=== PATIENT | male | born 1965 | race Caucasian/White ===

== ENCOUNTER 2016-10-16 15:32 | Emergency (ER) | payer BC, OTHER ==
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
[2016-10-16] MEDS ORDERED: Ketorolac 60 MG/2 ML SDV IM ONE (16:41)
[2016-10-16 16:44] VITALS: BP 121/80
--- NOTE | 2016-10-18 11:23 | CR ---
EXAM DATE: 10/16/16 PATIENT'S AGE: 50 Patient: JAYRO BETH Facility: [place], [place] Site . Site : 1965 Study: XRay Shoulder Right [id number]/[id number] 4:09:21 PM Ordering Physician: Doctor Weiss Final Report: INDICATION: Shoulder pain. Trauma. Previous AC separation. Technique: Right shoulder. Three views. 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 The changes are compatible with the previous acromioclavicular separation. 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 Normal alignment in the glenohumeral joint. No acute fracture. Dictated by Zachary Jung MD @ Oct 16 2016 4:30PM (Electronic Signature) Report Signed by Proxy. MATT
== END 2016-10-16 17:16 | disposition home or self-care (01) ==
LOC: MW.ED 15:32
DX: S49.91XA Unspecified injury of right shoulder and upper arm, initial encounter (principal); Z98.890 Other specified postprocedural states
CPT/HCPCS: 73030; 96372; 99283; J1885

== ENCOUNTER 2020-09-01 12:03 | Emergency (ER) | payer OTHER, BC ==
--- NOTE | 2020-09-01 12:05 | EDM.PDOC ---
ED HPI GENERAL MEDICAL PROBLEM - General Stated Complaint: COVID Time Seen by Provider: 09/01/20 12:04 Source of Information: Reports: Patient History Limitations: Reports: No Limitations - History of Present Illness INITIAL COMMENTS - FREE TEXT/NARRATIVE: 54-year-old male presents for fever, cough, shortness of breath associated with recent COVID-19 diagnosis. Patient notes he has been feeling unwell for about the last 8 days. He received this diagnosis about 6 days ago. He has been taking Advil although he does not now the strength. He reports fevers, body aches, shortness of breath, nonproductive cough, chest tightness. - Related Data Allergies Allergy/AdvReac Type Severity Reaction Status Date / Time No Known Allergies Allergy Verified 09/01/20 12:23 Home Meds: Home Meds Cyclobenzaprine [Flexeril] 1 tab PO TID PRN #20 tablet 10/16/16 [Rx] Diclofenac Sodium [Voltaren] 1 tab PO TIDMEALS PRN #30 tab.ec 10/16/16 [Rx] Past Medical History - Past Health History Medical/Surgical History: Denies Medical/Surgical History Gastrointestinal History: Reports: Other (See Below) Other Gastrointestinal History: history of heartburn, takes OTC med Musculoskeletal History: Reports: Fracture Other Musculoskeletal History: history of 2 fx wrists and 2 fx ankles - Past Surgical History HEENT Surgical History: Reports: Naso-Sinus Surgery, Tonsillectomy Musculoskeletal Surgical History: Reports: Amputation, Other (See Below) Social & Family History - Family History Family Medical History: No Pertinent Family History ED ROS GENERAL - Review of Systems Review Of Systems: Comprehensive ROS is negative, except as noted in HPI. ED EXAM, GENERAL - Physical Exam Exam: See Below Exam Limited By: No Limitations General Appearance: Alert, WD/WN, No Apparent Distress Throat/Mouth: Normal Voice, No Airway Compromise Head: Atraumatic, Normocephalic Neck: Normal Inspection Respiratory/Chest: No Respiratory Distress, Lungs Clear, Normal Breath Sounds, No Accessory Muscle Use Cardiovascular: Normal Peripheral Pulses, Regular Rate, Rhythm, No Edema Extremities: Normal Inspection Neurological: Alert, Normal Cognition Psychiatric: Normal Mood, Flat Affect Skin Exam: Warm, Dry, Intact, Normal Color Course - Vital Signs Last Recorded V/S: Last Vital Signs Temp 99.3 F 09/01/20 13:12 Pulse 89 09/01/20 12:05 Resp 18 09/01/20 12:05 BP 129/85 09/01/20 12:05 Pulse Ox 94 L 09/01/20 12:05 - Orders/Labs/Meds Orders: Active Orders 24 hr Category Date Time Status EKG Documentation Completion [RC] STAT Care 09/01/20 12:16 Active Pulse Oximetry [RC] ASDIRECTED Care 09/01/20 12:17 Active Sodium Chloride 0.9% [Saline Flush] Med 09/01/20 12:16 Active 10 ml FLUSH ASDIRECTED PRN Sodium Chloride 0.9% [Saline Flush] Med 09/01/20 12:16 Active 2.5 ml FLUSH ASDIRECTED PRN Saline Lock Insert [OM.PC] Stat Oth 09/01/20 12:17 Ordered Medication Orders Sodium Chloride (Sodium Chloride 0.9% 10 Ml Syringe) 10 ml FLUSH ASDIRECTED PRN PRN Reason: Keep Vein Open Last Admin: 09/01/20 13:13 Dose: 10 ml Documented by: [id number] Sodium Chloride (Sodium Chloride 0.9% 2.5 Ml Syringe) 2.5 ml FLUSH ASDIRECTED PRN PRN Reason: Keep Vein Open Last Admin: 09/01/20 13:13 Dose: 2.5 ml Documented by: [email or web address] Labs: Laboratory Tests 09/01/20 09/01/20 Range/Units 13:23 13:23 WBC 3.67 L (4.0-11.0) K/uL RBC 5.00 (4.50-5.90) M/uL Hgb 15.3 (13.0-17.0) g/dL Hct 44.9 (38.0-50.0) % MCV 89.8 (80.0-98.0) fL MCH 30.6 (27.0-32.0) pg MCHC 34.1 (31.0-37.0) g/dL RDW Std Deviation 46.3 (28.0-62.0) fl RDW Coeff of Sherin 14 (11.0-15.0) % Plt Count 213 (150-400) K/uL MPV 9.70 (7.40-12.00) fL Neut % (Auto) 59.7 (48.0-80.0) % Lymph % (Auto) 30.0 (16.0-40.0) % [place] % (Auto) 9.5 (0.0-15.0) % Eos % (Auto) 0.8 (0.0-7.0) % Baso % (Auto) 0.0 (0.0-1.5) % Neut # (Auto) 2.2 (1.4-5.7) K/uL Lymph # (Auto) 1.1 (0.6-2.4) K/uL [place] # (Auto) 0.4 (0.0-0.8) K/uL Eos # (Auto) 0.0 (0.0-0.7) K/uL Baso # (Auto) 0.0 (0.0-0.1) K/uL Nucleated RBC % 0.0 /100WBC Nucleated RBCs # 0 K/uL Sodium 136 (136-148) mmol/L Potassium 4.1 (3.5-5.1) mmol/L Chloride 101 (98-107) mmol/L Carbon Dioxide 26.2 (21.0-32.0) mmol/L BUN 16 (7.0-18.0) mg/dL Creatinine 0.8 (0.8-1.3) mg/dL Est Cr Clr Drug Dosing TNP Estimated GFR (MDRD) > 60.0 ml/min Glucose 103 (74-106) mg/dL Calcium 7.9 L (8.5-10.1) mg/dL Total Bilirubin 0.7 (0.2-1.0) mg/dL AST 25 (15-37) IU/L ALT 32 (14-63) IU/L Alkaline Phosphatase 71 (46-116) U/L Troponin I < 0.050 (0.000-0.056) ng/mL Total Protein 6.7 (6.4-8.2) g/dL Albumin 3.2 L (3.4-5.0) g/dL Globulin 3.5 (2.6-4.0) g/dL Albumin/Globulin Ratio 0.9 (0.9-1.6) Meds: Medications Generic Name Dose Route Start Last Admin Trade Name Freq PRN Reason Stop Dose Admin Sodium Chloride 10 ml 09/01/20 12:16 09/01/20 13:13 Sodium Chloride 0.9% 10 Ml Syringe FLUSH 10 ml ASDIRECTED PRN Administration Keep Vein Open Sodium Chloride 2.5 ml 09/01/20 12:16 09/01/20 13:13 Sodium Chloride 0.9% 2.5 Ml Syringe FLUSH 2.5 ml ASDIRECTED PRN Administration Keep Vein Open Discontinued Medications Generic Name Dose Route Start Last Admin Trade Name Val PRN Reason Stop Dose Admin Acetaminophen 1,000 mg 09/01/20 12:16 09/01/20 13:12 Acetaminophen 500 Mg Tab PO 09/01/20 12:17 1,000 mg ONETIME ONE Administration Sodium Chloride 1,000 mls @ 999 mls/hr 09/01/20 12:16 09/01/20 13:11 Normal Saline IV 09/01/20 13:16 999 mls/hr .Bolus ONE Administration Ketorolac Tromethamine 15 mg 09/01/20 12:16 09/01/20 13:11 Ketorolac 15 Mg/Ml Sdv IVPUSH 09/01/20 12:17 15 mg ONETIME ONE Administration - Re-Assessments/Exams Free Text/Narrative Re-Assessment/Exam: 09/01/20 12:19 We will get EKG, routine lab work including troponin considering the chest pain component. Will get a chest x-ray. Will treat symptomatically with IV fluid bolus, Toradol, Tylenol. Will reassess patient for disposition. 09/01/20 14:13 Patient's labs are unremarkable aside from leukopenia consistent with COVID. Will d/c with instructions for motrin/tylenol use. Departure - Departure Time of Disposition: 14:14 Disposition: Home, Self-Care 01 Condition: Good Clinical Impression: COVID-19 - Discharge Information Instructions: COVID-19 Frequently Asked Questions Referrals: PCP,None [Primary Care Provider] - Additional Instructions: Your labs are grossly unremarkable. Your chest x-ray does show signs of mild Covid. You should take Tylenol and Motrin to help with your symptoms. You can take 1000 mg of Tylenol every 4 hours as needed as well as 600 mg of Motrin every 6 hours as needed. These are safe to take together. If you begin to experience significant difficulty breathing or suddenly changing chest pain then you are encouraged to come back to the emergency department for reassessment. The following information is given to patients seen in the emergency department who are being discharged to home. This information is to outline your options for follow-up care. We provide all patients seen in our emergency department with a follow-up referral. The need for follow-up, as well as the timing and circumstances, are variable depending upon the specifics of your emergency department visit. If you don't have a primary care physician on staff, we will provide you with a referral. We always advise you to contact your personal physician following an emergency department visit to inform them of the circumstance of the visit and for follow-up with them and/or the need for any referrals to a consulting spec ialist. The emergency department will also refer you to a specialist when appropriate. This referral assures that you have the opportunity for follow-up care with a specialist. All of these measure are taken in an effort to provide you with optimal care, which includes your follow-up. Under all circumstances we always encourage you to contact your private physician who remains a resource for coordinating your care. When calling for follow-up care, please make the office aware that this follow-up is from your recent emergency room visit. If for any reason you are refused follow-up, please contact the [facility] at and asked to speak to the emergency department charge nurse. Please follow up with your primary care physician. If you do not have a primary care physician, see below: [facility] [address] [place] [id number] [id number] [facility] [address] [place] [id number] Sepsis Event Note (ED) - Focused Exam Vital Signs: Vital Signs Temp Temp Pulse Resp BP Pulse Ox 09/01/20 13:12 99.3 F 09/01/20 12:05 99.3 F 89 18 129/85 94 L - My Orders Last 24 Hours: My Active Orders 09/01/20 12:16 EKG Documentation Completion [RC] STAT Sodium Chloride 0.9% [Saline Flush] 10 ml FLUSH ASDIRECTED PRN Sodium Chloride 0.9% [Saline Flush] 2.5 ml FLUSH ASDIRECTED PRN 09/01/20 12:17 Pulse Oximetry [RC] ASDIRECTED Saline Lock Insert [OM.PC] Stat - Assessment/Plan Last 24 Hours: My Active Orders 09/01/20 12:16 EKG Documentation Completion [RC] STAT Sodium Chloride 0.9% [Saline Flush] 10 ml FLUSH ASDIRECTED PRN Sodium Chloride 0.9% [Saline Flush] 2.5 ml FLUSH ASDIRECTED PRN 09/01/20 12:17 Pulse Oximetry [RC] ASDIRECTED Saline Lock Insert [OM.PC] Stat
[2020-09-01] MEDS ORDERED: Sodium Chloride 0.9% 2.5 ML Syringe FLUSH PRN (12:16)
[2020-09-01] MEDS ORDERED: Sodium Chloride 0.9% 1,000 ML IV ONE (12:16)
[2020-09-01] MEDS ORDERED: Acetaminophen 500 MG Tab PO ONE (12:16)
[2020-09-01] MEDS ORDERED: Sodium Chloride 0.9% 10 ML Syringe FLUSH PRN (12:16)
[2020-09-01] MEDS ORDERED: Ketorolac 15 MG/ML SDV IVPUSH ONE (12:16)
--- NOTE | 2020-09-01 12:44 | CR ---
INDICATION: COVID. 54-year-old male. No additional clinical information provided. TECHNIQUE: Chest radiograph 1 view COMPARISON: None FINDINGS: Cardiovascular and mediastinum: The heart silhouette is normal in size and morphology. The mediastinum is normal in appearance. Lungs and pleural spaces: Faint peripheral patchy infiltrate at the right lower lung zone. Bilateral upper lung zones and left lung base are relatively clear. No blunting of costophrenic sulci. Bones and soft tissues: No significant findings. Right shoulder arthroplasty hardware partially visualized. IMPRESSION: 1. Peripheral patchy opacities at the right lung base, suspicious for COVID-19 viral pneumonitis. 2. Possible subtle atelectasis and/or infiltrate at the left costophrenic sulcus. Dictated by Herber Cardoza MD @ 09/01/2020 12:42:[address] Herber Cardoza @ Sep 01 2020 12:42PM
[2020-09-01 14:03] LABS: BLOOD UREA NITROGEN,BUN 16 mg/dL (7.0-18.0); CARBON DIOXIDE,CO2 26.2 mmol/L (21.0-32.0); CHLORIDE,CL 101 mmol/L (98-107); GLUCOSE RANDOM 103 mg/dL (74-106); POTASSIUM,K 4.1 mmol/L (3.5-5.1); SODIUM,NA 136 mmol/L (136-148)
[2020-09-01 14:30] VITALS: BP 129/83; PULSE 78
== END 2020-09-01 14:39 | disposition home or self-care (01) ==
LOC: MW.ED 12:03
DX: U07.1 COVID-19 (principal)
CPT/HCPCS: 36415; 71045; 80053; 84484; 85025; 93005; 96374; 99285; A9270; J1885; J7030; 99284

== ENCOUNTER 2020-10-15 12:36 | Emergency (ER) | payer OTHER, BC ==
[2020-10-15] MEDS ORDERED: Sodium Chloride 0.9% 10 ML Syringe FLUSH PRN (12:41)
[2020-10-15] MEDS ORDERED: Sodium Chloride 0.9% 2.5 ML Syringe FLUSH PRN (12:41)
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
[2020-10-15 13:18] LABS: BLOOD UREA NITROGEN,BUN 15 mg/dL (7.0-18.0); CARBON DIOXIDE,CO2 21.9 mmol/L (21.0-32.0); CHLORIDE,CL 101 mmol/L (98-107); GLUCOSE RANDOM 103 mg/dL (74-106); POTASSIUM,K 4.2 mmol/L (3.5-5.1); SODIUM,NA 136 mmol/L (136-148)
--- NOTE | 2020-10-15 14:07 | CR ---
INDICATION: Trauma TECHNIQUE: AP pelvis and two views right hip COMPARISON: None FINDINGS: Bones: Alignment is normal. No fractures or bone lesions. Joint spaces: Mild degenerative changes involving both hip joints. Soft tissues: Unremarkable. IMPRESSION: No evidence of acute trauma. Dictated by Jase Marie MD @ 10/15/2020 2:06:[address] Jase Marie @ Oct 15 2020 2:06PM
--- NOTE | 2020-10-15 14:07 | CR ---
Indication: Injury Comparison: None available. Technique: AP, Lateral, and Oblique views right ankle were obtained Findings: There is no displaced fracture or dislocation. The ankle mortise is symmetrical. The talar dome is smooth and intact. The joint spaces are otherwise grossly preserved. There is mild to moderate malleolar soft tissue swelling. Impression: [id number] malleolar soft tissue swelling without evidence of acute osseous abnormality. Dictated by Yoseph Sorto MD @ 10/15/2020 2:07:[address] Yoseph Sorto @ Oct 15 2020 2:07PM
--- NOTE | 2020-10-15 14:14 | CR ---
INDICATION: Trauma TECHNIQUE: Chest 1 view. COMPARISON: 09/01/2020 FINDINGS: Cardiovascular and mediastinum: Heart size and vasculature are normal in caliber and appearance. Mediastinum is within normal limits. Lungs and pleural space: Lungs are clear. No sign of infiltrate or mass. No sign of pleural effusion. No pneumothorax. Bones and soft tissues: Right shoulder arthroplasty. IMPRESSION: No evidence of acute trauma. Dictated by Jase Marie MD @ 10/15/2020 2:11:[address] Jase Marie @ Oct 15 2020 2:11PM
[2020-10-15 15:42] VITALS: BP 130/71; PULSE 78
== END 2020-10-15 14:38 | disposition home or self-care (01) ==
LOC: MW.ED 12:36
DX: S93.401A Sprain of unspecified ligament of right ankle, initial encounter (principal); S70.01XA Contusion of right hip, initial encounter; V29.9XXA Motorcycle rider (driver) (passenger) injured in unspecified traffic accident, initial encounter; Y93.55 Activity, bike riding
CPT/HCPCS: 36415; 71045; 71045-26; 73502-26-RT; 73502-RT; 73610-26-RT; 73610-RT; 80053; 85025; 99284; 99284-25